=== PATIENT | female | born 2000 | race Caucasian/White ===

== ENCOUNTER 2019-12-28 11:02 | Emergency (ER) | payer OTHER ==
[~2019-12-28] VITALS: Ht 171.4 cm; Wt 74.8 kg
[2019-12-28 11:15] VITALS: BP 122/73
--- NOTE | 2019-12-28 11:21 | NUR ---
AMB TO BED 04
--- NOTE | 2019-12-28 11:23 | NUR ---
19 Y/O F C/C INSECT STING X 1 DAY. PT PRESENTS WITH LEFT HAND SWOLLEN PAST WRIST. ROM LIMITED, CMS WDL. CAP REFILL WDL. PAIN /. PT TAKEN TWO BENADRYL AT HOME. PT ASYMPTOMATIC NO RESPIRATIORY/CHEST DISTRESS. PT NKA. NO HX. RX CONTROL. NO N/V/D. SIDE RAIL X1.
--- NOTE | 2019-12-28 11:26 | NUR ---
ERMD AT BEDSIDE
--- NOTE | 2019-12-28 11:37 | NUR ---
PT RESTING IN BED, SIDE RAIL X1
[2019-12-28 11:52] VITALS: BP 122/73
== END 2019-12-28 11:53 | disposition home or self-care (01) ==
LOC: MED 11:02
DX: T78.40XA Allergy, unspecified, initial encounter (principal); X58.XXXA Exposure to other specified factors, initial encounter
CPT/HCPCS: 99283